=== PATIENT | female | born 1975 | race Asian ===

== ENCOUNTER 2023-12-23 08:14 | Outpatient (REF) | payer BC, SELFPAY ==
--- NOTE | ~2023-12-23 | US_ITS ---
EXAMINATION: US COMPLETE ABDOMEN WITH LIVER ELASTOGRAPHY CLINICAL INFORMATION: Fatty liver, elevated LFTs. COMPARISON: None available. TECHNIQUE: Real-time imaging of the abdominal viscera. Noninvasive ultrasound liver fibrosis assessment is performed using Arturo ElastPQ point quantification shear wave elastography (2D-SWE) with a C5-2 MHz transducer. Multiple elastography samples are obtained. FINDINGS: PANCREAS: . The visualized pancreatic head and body are normal in appearance. The remainder of the pancreas is obscured from visualization by the overlying bowel gas. ABDOMINAL AORTA: The proximal, middle, and distal aortic segments are normal in caliber. INFERIOR VENA CAVA: Visualized portions are normal. LIVER: Liver is enlarged with increased echogenicity consistent with hepatic steatosis. There is some focal fatty sparing seen adjacent to the gallbladder. No focal lesion or intrahepatic biliary duct dilatation. The right lobe measures 18.0 cm in length. The left lobe measures 14.2 cm in length. Portal flow is towards the liver (hepatopetal). Shear wave liver elastography median stiffness is 1.54 m/s (reference: normal median stiffness is 1.3 m/s or less). IQR/median stiffness to assess sampling precision is 0.08 (reference: good quality data set is IQR/median stiffness of 0.15 or less). GALLBLADDER: Normal. The gallbladder is physiologically distended without evidence of stones, sludge, polyps, wall thickening or pericholecystic fluid. COMMON BILE DUCT: Normal in caliber measuring 0.3 cm in diameter. RIGHT KIDNEY: Normal. No hydronephrosis. No renal calculi or focal parenchymal lesions. The kidney measures 10.2 cm in maximum dimension. LEFT KIDNEY: Normal. No hydronephrosis. No renal calculi or focal parenchymal lesions. The kidney measures 11.8 cm in maximum dimension. SPLEEN: Normal. The spleen measures 9.5 cm in maximum dimension. FREE FLUID: None. US/US abdomen comp w elastography IMPRESSION: 1. Enlarged fatty liver 2. Liver elastography: In the absence of other known clinical signs, measurements rule out compensated advanced chronic liver disease. If there are known clinical signs, further testing may be needed for confirmation. REFERENCE: Society of Radiologists in Ultrasound Liver Stiffness Thresholds (2020): LIVER STIFFNESS THRESHOLDS: *Liver Stiffness equal or less than 1.3 m/s: High probability of being normal. *Liver Stiffness less than 1.7 m/s: In the absence of other known clinical signs, rules out compensated advanced chronic liver disease. *Liver Stiffness 1.7-2.1 m/s: Suggestive of compensated advanced chronic liver disease but need further test for confirmation. *Liver Stiffness over 2.1 m/s: Rules in compensated advanced chronic liver disease. *Liver Stiffness over 2.4 m/s: Suggestive of clinically significant portal hypertension. QUALITY OF DATA SET: *IQR/Median value equal or less than 0.15 implies a quality data set. *IQR/Median value over 0.15 implies a poor quality data set. SIGNIFICANT CHANGE FROM PRIOR EXAM: Significant change if liver stiffness measurement is 10% or greater from prior exam. OTHER CONSIDERATIONS: The stage of liver fibrosis may be overestimated in the setting of acute hepatitis, liver inflammation, elevated liver function tests, hepatic vascular congestion, obstructive cholestasis, non-fasting state, and infiltrative diseases such as amyloidosis and lymphoma. In some patients with NAFLD, the liver stiffness thresholds for compensated advanced chronic liver disease may be lower. In causes other than viral hepatitis and NAFLD, liver stiffness thresholds are not well established.
[2023-12-23 09:55] LABS: MANUAL DIFF FLAG NO
[2023-12-23 10:38] LABS: INTERNATIONAL NORM RATIO 0.9 (0.9-1.1); Prothrombin Time 11.2 SEC (11.1-13.3)
[2023-12-23 10:39] LABS: Basophils Percent Auto 0.5 % (0-2); Eosinophils Absolute Auto 0.1 X10*3/uL (0.0-0.4); Eosinophils Percent Auto 2.1 % (0-4); Hematocrit 44.5 % (37.0-47.0); Hemoglobin 15.4 g/dl (12.0-16.0); Imm Gran Abs Auto 0.02 X10*3/uL (0.00-0.03); Imm Gran Pct Auto 0.3 % (0.0-0.4); Lymphocytes Absolute Auto 1.9 X10*3/uL (1.2-4.9); Lymphocytes Percent Auto 29.5 % (20-40); Mean Corpuscular HGB Conc 34.6 g/dl (31.0-35.0); Mean Corpuscular Hemoglobin 30.7 pg (27.0-33.0); Mean Corpuscular Volume 88.8 fL (80.0-98.0); Mean Platelet Volume 9.1 fL (9.4-12.3); Monocytes Absolute Auto 0.4 X10*3/uL (0.1-1.2); Monocytes Percent Auto 5.8 % (2-11); Neutrophils Absolute Auto 4.1 x10*3/uL (2.0-8.3); Neutrophils Percent Auto 61.8 % (45-73); Platelet Count 262 X10*3/uL (160-400); Red Blood Count 5.01 X10*6/uL (4.20-5.50); Red Cell Distribution Width 12.6 % (11.0-16.0); White Blood Count 6.6 X10*3/uL (4.8-10.8)
[2023-12-23 11:11] LABS: Alanine Aminotransferase 51 U/L (0-31); Albumin Level 4.6 g/dL (3.5-5.0); Alkaline Phosphatase 68 U/L (39-117); Aspartate Amino Transferase 30 U/L (5-31); Bilirubin Direct 0.2 mg/dL (0.0-0.5); Bilirubin Total 0.6 mg/dL (0.0-1.0); Iron 136 mcg/dL (30-160); Percent Iron Saturation 40 % (15-50); Total Iron Binding Capacity 343 mcg/dL (228-428); Total Protein 7.9 g/dL (6.5-8.0); Unsaturated Iron Binding 207 ug/dL
[2023-12-23 11:24] LABS: HBS Num1 0.12 mIU/mL (0-7.99); HBc Num1 0.12 S/CO (0.00-0.79); HBsAGNum1 0.35 S/CO (0.00-0.99); Hepatitis B Core Antibody Nonreactive (Nonreactive); Hepatitis B Surface Antigen Negative (Negative); ~Hepatitis B Surface Antibody NONREACTIVE (Nonreactive); ~Hepatitis C Antibody Nonreactive (Nonreactive)
[2023-12-23 11:28] LABS: Ferritin 463 ng/mL (10-250)
[2023-12-24 09:03] LABS: Alpha 1 Anti-trypsin 122 mg/dL (83-199); Ceruloplasmin 26 mg/dL (14-48)
[2023-12-25 10:04] LABS: Mitochondrial Antibodies NEGATIVE (NEGATIVE)
[2023-12-30 05:53] LABS: Smooth Muscle Antibody <20 U (<20)
[2024-01-01 06:39] LABS: Anti Nuclear Antibody Screen NEGATIVE (NEGATIVE)
== END 2023-12-23 08:15 | disposition home or self-care (01) ==
LOC: HO.US 08:14
PROVIDERS: PCP Family Medicine; Visit Provider Internal Medicine
DX: R94.5 Abnormal results of liver function studies (principal); K76.0 Fatty (change of) liver, not elsewhere classified
CPT/HCPCS: 36415; 76700; 76981; 80076; 82103; 82390; 82728; 83540; 85025; 85610; 86015; 86038; 86381; 86704; 86706; 86803; 87340

== ENCOUNTER 2024-03-30 10:51 | Day surgery (SDC) | payer BC, SELFPAY ==
[2024-03-26 14:57] VITALS: BMI 27.7
[2024-03-30 11:15] VITALS: BMI 27.7
[2024-03-30 11:23] LABS: UPreg QC Valid YES; Urine Pregnancy NEGATIVE (NEGATIVE)
[2024-03-30] MEDS: Lactated Ringers 1,000 ML 100 ML IVCONT (11:23)
[2024-03-30 11:33] VITALS: BP 129/77; PULSE 79; RESP 18; TEMP 36.7; O2SAT 99
--- NOTE | 2024-03-30 11:50 | HO.ANESPROP2 ---
Documented by User: Natalia Enrique NP 03/27/24 09:30 HPI - Anesthesia Eval Consult details Narrative: 48yo F for Colonoscopy [facility] Past Medical History Medical History Elevated liver enzymes Surgical History Surgical History No pertinent past surgical history Social History Social History (Updated 03/26/24 @ 14:56 by Kim Marcano, HEATHER) Household Members: Spouse Are you a primary healthcare consulting manager to a significant other at home: No Do you presently have visiting nurse or other home services: No Patient Tobacco Use Status: Never used Tobacco Have you been hit, kicked, punched, or otherwise hurt by someone within the past year? If so, by whom?: No Are you DNR?: No Advance Directives: No Advance Directives Information Provided: Yes Recently lost weight without trying: No Nutrition Risks: No Nutritional Risk FDLMP: due next week Meds Allergies Allergy/AdvReac Type Severity Reaction Status Date / Time No Known Allergies Allergy Verified 03/30/24 11:06 Home Medications ?Medication ?Instructions ?Recorded ?Confirmed ?Last Taken ?Type No Known Home Meds 03/26/24 03/26/24 Unknown History Exam Height,Weight and Vital Signs: Height 5 ft 3.5 in Weight 72.121 kg Assessment and Plan Assessment Anesthesia Assessment: Chart Reviewed Documented by User: Carlotta Gross DO 03/30/24 11:57 [facility] Past Medical History Medical History Elevated liver enzymes Family History Family history of problems with anesthesia: No Surgical History Surgical History No pertinent past surgical history History of Problems with Anesthesia: No Social History Social History (Updated 03/26/24 @ 14:56 by Kim Marcano RN) Household Members: Spouse Are you a primary healthcare consulting manager to a significant other at home: No Do you presently have visiting nurse or other home services: No Patient Tobacco Use Status: Never used Tobacco Have you been hit, kicked, punched, or otherwise hurt by someone within the past year? If so, by whom?: No Are you DNR?: No Advance Directives: No Advance Directives Information Provided: Yes Recently lost weight without trying: No Nutrition Risks: No Nutritional Risk FDLMP: due next week Meds Allergies Allergy/AdvReac Type Severity Reaction Status Date / Time No Known Allergies Allergy Verified 03/30/24 11:06 Home Medications ?Medication ?Instructions ?Recorded ?Confirmed ?Last Taken ?Type No Known Home Meds 03/26/24 03/26/24 Unknown History Exam Exam Date and Time: 03/30/24 1150 Height,Weight and Vital Signs: Height 5 ft 3.5 in Weight 72.121 kg Vital Signs Temperature 98.1 F 03/30/24 11:33 Pulse Rate 79 03/30/24 11:33 Respiratory Rate 18 03/30/24 11:33 Blood Pressure 129/77 03/30/24 11:33 Pulse Oximetry 99 03/30/24 11:33 Oxygen Delivery Method Room Air 03/30/24 11:33 Temperature 98.1 F 03/30/24 11:33 Pulse Rate 79 03/30/24 11:33 Respiratory Rate 18 03/30/24 11:33 Blood Pressure 129/77 03/30/24 11:33 Pulse Oximetry 99 03/30/24 11:33 Oxygen Delivery Method Room Air 03/30/24 11:33 Airway Mallampati Class: II TM Dist: >3cm Neck ROM: Full Loose/Missing/Broken Teeth: Yes (missing molars but no loose or broken teeth) Heart: S1S2 Lungs: CTAB Assessment and Plan Assessment Anesthesia Assessment: Anesthesia Plan Discussed and Chart Reviewed Final Anesthetic Review Family History of Problems with Anesthesia: No History of Problems with Anesthesia: No NPO: Yes ASA Class: I Final Preanesthetic Review: No Changes in Pt Med Stat, Meds/Allgs Chart Reviewed, Consent Obtained/Reviewed and Anes Risks/Benef Reviewed Patient Risk: Low Procedure Risk: Low Anesthetic Plan Anesthetic Plan: MAC: and Agree w/ Assess. and Plan Disposition: Standard PACU
[2024-03-30 13:12] VITALS: BP 88/49; PULSE 70; RESP 16; TEMP 36.1; O2SAT 97
--- NOTE | 2024-03-30 13:20 | PM.OP ---
Brief Operative Note Date of Service: 03/30/24 Pre-op diagnosis: Screening Post-op diagnosis: other (Internal hemorrhoids) Procedure: Colonoscopy to the cecum Surgeon: Anton West MD Anesthesia: MAC Was an Solar Installation Manager used for this Procedure?: No Estimated blood loss (mL): 0 Pathology: none sent Condition: stable Disposition: PACU
[2024-03-30 13:30] VITALS: BP 107/63; PULSE 77; RESP 16; O2SAT 97
[2024-03-30 13:45] VITALS: BP 117/64; PULSE 62; RESP 16; TEMP 36.1; O2SAT 99
--- NOTE | 2024-03-30 14:04 | OP_ITS ---
DATE OF SERVICE: 03/30/2024 SURGEON: Anton West MD INDICATIONS: The patient presents for evaluation of colorectal cancer screening. Full consent has been obtained from her for this, including risks of bleeding and perforation. PREOPERATIVE DIAGNOSIS: Colorectal cancer screening. POSTOPERATIVE DIAGNOSIS: PROCEDURE PERFORMED: Colonoscopy to the cecum. ESTIMATED BLOOD LOSS: COMPLICATIONS: ANESTHESIA: Monitored anesthesia care. ASSISTANTS: SPECIMENS: POSTOPERATIVE DIAGNOSES: Colorectal cancer screening, internal hemorrhoids, limited prep. DESCRIPTION OF PROCEDURE: The patient was placed in the left lateral decubitus position. The digital rectal exam revealed no abnormalities. The Olympus video pediatric colonoscope was entered into the rectum and advanced easily to the cecum. Once in the cecum, I did identify cecal pouch with appendiceal orifice and a normal-appearing ileocecal valve. There was transillumination of light deep in the right lower quadrant. Portions of the cecum were obscured by some residual vegetable material, which was irrigated and washed away as best as possible but not completely. All portions of the cecum that I did visualize appeared normal. The scope was then slowly withdrawn assessing all mucosal surfaces carefully. Preparation in the ascending colon was also somewhat limited due to the retained vegetable matter. Again, a lot of irrigation and washing away of the vegetable material was performed but not completely. There were also some areas in the sigmoid colon and descending colon as well that were similar and had to be irrigated and washed as best as possible. I did not visualize any polyps, colitis, nor angiodysplasia. In the rectum, scope was retroflexed visualizing some internal hemorrhoids but no other pathology. The rectal mucosa appeared normal. The scope was straightened and withdrawn from the patient. She tolerated the procedure well and was returned to the recovery area in stable condition. IMPRESSION: Internal hemorrhoids, otherwise negative colonoscopy, but limited somewhat by the prep. PLAN: I would recommend a repeat colonoscopy in 5 years for further screening rather than 10 years given a somewhat limited prep today. According to her and her she did the entire prep and clear liquid diet the day before as instructed. She does eat a lot of vegetables in general. I have instructed her to obtain a Cologuard test from her PCP to do this year and let me know the results. If it is positive we would then want to repeat a colonoscopy with a better prep by some time in 2024. If it is negative we could then just do another colonoscopy in 5 years. Her recent liver workup was completely negative and her liver profile was normal other than a minimally elevated ALT of 51. Her ferritin was slightly elevated at 463, but her iron saturation was normal. I do not think this represents any type of hemochromatosis. We did review the diagnosis of fatty liver and the need to try to lose weight and watch her diet. I do not think she needs a liver biopsy or any other workup at this time. Her LFT's should be followed twice a year and she can be referred back to see me if they rise significantly to 2-3 times normal. If things are stable with her liver studies and the Cologuard test is negative she will otherwise see me in 5 years for a followup screening colonoscopy. She was advised to see me if the liver enzymes become more significantly elevated and/or the Cologuard test is positive. This has been discussed with the patient and her in detail. She was given written instructions in this regard as well. MD JAZZ Pérez/MEREDITH / [id number] MTDD
== END 2024-03-30 14:01 | disposition home or self-care (01) ==
PROVIDERS: Nurse Practitioner; PCP Family Medicine; Visit Provider Internal Medicine
PROC: 0DJD8ZZ Inspection of Lower Intestinal Tract, Via Natural or Artificial Opening Endoscopic (ICD-10-PCS; CPT 45378; principal; 2024-03-30 12:30)
DX: Z12.11 Encounter for screening for malignant neoplasm of colon (principal); K64.8 Other hemorrhoids; R74.8 Abnormal levels of other serum enzymes; K76.0 Fatty (change of) liver, not elsewhere classified
CPT/HCPCS: 45378; 81025; J2704